=== PATIENT | female | born 1970 | race Caucasian/White ===

== ENCOUNTER → 2017-05-18 | Outpatient (REF) | payer OTHER ==
[~2017-05-18] MED LIST: ASPI81TA85 PO; TOPA25TA PO; ZOCO40TA PO; no home medications
[2017-05-18 14:13] LABS: BASO % 0.6 % (0.0-1.0); EOS # 0.2 K/mm3 (0.0-0.50); EOS % 3.8 % (0.0-3.0); LARGE UNSTAINED CELL # 0.2 K/mm3 (0.0-0.4); LARGE UNSTAINED CELL % 2.3 % (0.0-4.0); LYMPH # 2.5 K/mm3 (1.5-4.5); LYMPH % 36.5 % (24.0-44.0); MEAN CORPUSCULAR HEMOGLOBIN 33.8 pg (27.0-33.0); MEAN CORPUSCULAR HGB CONC 33.4 g/dl (32.0-36.5); MEAN CORPUSCULAR VOLUME 101.4 fl (80.0-96.0); MONO # 0.3 K/mm3 (0.0-0.8); MONO % 3.9 % (0.0-5.0); NEUTROPHILS # 3.4 K/mm3 (1.8-7.7); NEUTROPHILS % 52.9 % (36.0-66.0); PLATELET COUNT, AUTOMATED 155 k/mm3 (150-450); RED CELL DISTRIBUTION WIDTH 13.3 % (11.5-14.5); WHITE BLOOD COUNT 6.4 K/mm3 (4.0-10.0)
[2017-05-18 14:33] LABS: ALBUMIN 3.3 GM/DL (3.2-5.2); ALBUMIN/GLOBULIN RATIO 1.14 (1.00-1.93); ALKALINE PHOSPHATASE 69 U/L (45-117); ALT/SGPT 26 U/L (12-78); ANION GAP 10 MEQ/L (8-16); AST/SGOT 24 U/L (15-37); BILIRUBIN,TOTAL 0.6 MG/DL (0.2-1.0); BLOOD UREA NITROGEN 7 MG/DL (7-18); CALCIUM LEVEL 8.6 MG/DL (8.5-10.1); CARBON DIOXIDE LEVEL 19 MEQ/L (21-32); CHLORIDE LEVEL 116 MEQ/L (98-107); CHOLESTEROL LEVEL 134 MG/DL (<200); GLOMERULAR FILTRATION RATE > 60.0 (>58); GLUCOSE, FASTING 100 MG/DL (70-105); POTASSIUM SERUM 3.7 MEQ/L (3.5-5.1); SODIUM LEVEL 145 MEQ/L (136-145); TOTAL PROTEIN 6.2 GM/DL (6.4-8.2); TRIGLYCERIDES LEVEL 195 MG/DL (<150)
== END ==
LOC: M LABNEURO 08:01
PROVIDERS: ATTEND Psychiatry & Neurology Neurology
DX: Z86.73 Personal history of transient ischemic attack (TIA), and cerebral infarction without residual deficits (principal)

== ENCOUNTER 2017-10-21 16:51 | Emergency (ER) | payer OTHER ==
[2017-10-21] MEDS: NS 1,000 ML IV (20:45)
[2017-10-21] MEDS: METOCLOPRAMIDE INJ 10MG/2ML VIAL (J2765) IV (20:45)
[2017-10-21 21:16] LABS: BASO % 0.4 % (0.0-1.0); EOS # 0.2 10^3/uL (0.0-0.50); EOS % 2.5 % (0.0-3.0); HEMATOCRIT 43.4 % (36.0-47.0); HEMOGLOBIN 14.7 g/dl (12.0-16.0); IMMATURE GRANULOCYTE # 0.1 10^3/uL (0-0); IMMATURE GRANULOCYTE % 0.7 % (0-0); LYMPH % 42.4 % (24.0-44.0); MEAN CORPUSCULAR HEMOGLOBIN 33.1 pg (27.0-33.0); MEAN CORPUSCULAR HGB CONC 33.9 g/dl (32.0-36.5); MEAN CORPUSCULAR VOLUME 97.7 fl (80.0-96.0); MONO # 0.4 10^3/uL (0.0-0.8); MONO % 5.3 % (0.0-5.0); NEUTROPHILS # 3.5 10^3/uL (1.8-7.7); NEUTROPHILS % 48.7 % (36.0-66.0); PLATELET COUNT, AUTOMATED 159 10^3/uL (150-450); RED BLOOD COUNT 4.44 10^6/uL (4.00-5.40); RED CELL DISTRIBUTION WIDTH 12.2 % (11.5-14.5); WHITE BLOOD COUNT 7.1 10^3/uL (4.0-10.0)
[2017-10-21] MEDS: MORPHINE 4 MG/ML 1ML SYRINGE IV (21:28)
[2017-10-21 21:45] LABS: ALBUMIN 3.6 GM/DL (3.2-5.2); ALBUMIN/GLOBULIN RATIO 1.06 (1.00-1.93); ALKALINE PHOSPHATASE 83 U/L (45-117); ALT/SGPT 32 U/L (12-78); ANION GAP 9 MEQ/L (8-16); AST/SGOT 37 U/L (7-37); BILIRUBIN,DIRECT 0.2 MG/DL (0.0-0.2); BILIRUBIN,TOTAL 0.6 MG/DL (0.2-1.0); BLOOD UREA NITROGEN 9 MG/DL (7-18); CALCIUM LEVEL 8.7 MG/DL (8.5-10.1); CARBON DIOXIDE LEVEL 21 MEQ/L (21-32); CHLORIDE LEVEL 113 MEQ/L (98-107); CREATININE FOR GFR 0.67 MG/DL (0.55-1.02); GLOMERULAR FILTRATION RATE > 60.0 (>58); GLUCOSE, FASTING 86 MG/DL (70-105); LIPASE 207 U/L (73-393); POTASSIUM SERUM 3.7 MEQ/L (3.5-5.1); SODIUM LEVEL 143 MEQ/L (136-145)
[2017-10-22] MEDS: BISACODYL 10 MG SUPP PR (00:15)
[2017-10-22] MEDS: MAGNESIUM CITRATE 300 ML BTL PO (00:15)
== END 2017-10-22 00:21 | disposition home or self-care (01) ==
LOC: M ED 10-22 00:21
DX: K59.00 Constipation, unspecified (principal); K76.0 Fatty (change of) liver, not elsewhere classified; R16.1 Splenomegaly, not elsewhere classified; I10 Essential (primary) hypertension; K21.9 Gastro-esophageal reflux disease without esophagitis; F17.210 Nicotine dependence, cigarettes, uncomplicated; Z79.899 Other long term (current) drug therapy; Z79.82 Long term (current) use of aspirin; Z91.040 Latex allergy status; Z88.2 Allergy status to sulfonamides; Z98.890 Other specified postprocedural states; Z87.442 Personal history of urinary calculi
CPT/HCPCS: J2765

== ENCOUNTER 2017-10-27 19:00 | Emergency (ER) | payer OTHER ==
[2017-10-27] MEDS: ONDANSETRON 4 MG ORAL DISINTEGRATING TAB (S0181) PO (20:13)
== END 2017-10-27 21:19 | disposition home or self-care (01) ==
LOC: M ED 19:00
DX: J20.9 Acute bronchitis, unspecified (principal); R05 Cough; G43.909 Migraine, unspecified, not intractable, without status migrainosus; Z86.73 Personal history of transient ischemic attack (TIA), and cerebral infarction without residual deficits; F17.200 Nicotine dependence, unspecified, uncomplicated; Z79.899 Other long term (current) drug therapy; Z91.040 Latex allergy status; Z88.2 Allergy status to sulfonamides
CPT/HCPCS: 87804

== ENCOUNTER 2018-09-02 18:17 | Emergency (ER) | payer OTHER ==
[2018-09-02 19:26] LABS: BASO % 0.3 % (0.0-1.0); EOS # 0.3 10^3/uL (0.0-0.50); EOS % 4.1 % (0.0-3.0); HEMATOCRIT 43.4 % (36.0-47.0); HEMOGLOBIN 14.7 g/dl (12.0-15.5); IMMATURE GRANULOCYTE % 0.3 % (0-3.0); LYMPH # 1.4 10^3/uL (1.5-4.5); LYMPH % 22.4 % (24.0-44.0); MEAN CORPUSCULAR HEMOGLOBIN 33.4 pg (27.0-33.0); MEAN CORPUSCULAR HGB CONC 33.9 g/dl (32.0-36.5); MEAN CORPUSCULAR VOLUME 98.6 fl (80.0-96.0); MONO # 0.2 10^3/uL (0.0-0.8); MONO % 3.5 % (0.0-5.0); NEUTROPHILS # 4.2 10^3/uL (1.8-7.7); NEUTROPHILS % 69.4 % (36.0-66.0); PLATELET COUNT, AUTOMATED 122 10^3/uL (150-450); RED CELL DISTRIBUTION WIDTH 12.4 % (11.5-14.5)
[2018-09-02 19:48] LABS: ALBUMIN 3.3 GM/DL (3.2-5.2); ALKALINE PHOSPHATASE 99 U/L (45-117); ALT/SGPT 27 U/L (12-78); ANION GAP 9 MEQ/L (8-16); AST/SGOT 30 U/L (7-37); BILIRUBIN,DIRECT 0.2 MG/DL (0.0-0.2); BILIRUBIN,TOTAL 0.6 MG/DL (0.2-1.0); BLOOD UREA NITROGEN 10 MG/DL (7-18); CALCIUM LEVEL 8.3 MG/DL (8.5-10.1); CARBON DIOXIDE LEVEL 18 MEQ/L (21-32); CHLORIDE LEVEL 116 MEQ/L (98-107); CREATININE FOR GFR 0.82 MG/DL (0.55-1.30); GLOMERULAR FILTRATION RATE > 60.0 (>51); GLUCOSE, FASTING 116 MG/DL (70-100); LIPASE 255 U/L (73-393); POTASSIUM SERUM 3.7 MEQ/L (3.5-5.1); SODIUM LEVEL 143 MEQ/L (136-145); TOTAL PROTEIN 6.6 GM/DL (6.4-8.2)
[2018-09-02] MEDS: ONDANSETRON 4MG/2ML VIAL (J2405) IV (20:45)
[2018-09-02] MEDS: NS 1,000 ML IV (20:45)
[2018-09-02] MEDS: PANTOPRAZOLE 40MG INJ (PROTONIX) (C9113) IV (20:45)
== END 2018-09-02 22:08 | disposition home or self-care (01) ==
LOC: M ED 18:17
DX: K52.9 Noninfective gastroenteritis and colitis, unspecified (principal); Z86.73 Personal history of transient ischemic attack (TIA), and cerebral infarction without residual deficits; Z79.899 Other long term (current) drug therapy; Z88.2 Allergy status to sulfonamides; Z91.040 Latex allergy status
CPT/HCPCS: C9113

== ENCOUNTER 2018-11-04 12:40 | Emergency (ER) | payer OTHER ==
[~2018-11-04] VITALS: Ht 152.4 cm; Wt 119.1 kg
[~2018-11-04 12:40] MED LIST changes: +CHERSYP3 PO; +COLA100C5 PO; +KLOR1CAP2; +MIRA3350 PO; +NORT25CA2; +PRED20TA PO; +PROAAER10; +REGL10TA6 PO; +SIME1CAP PO; +TIZA4CAP; +TOPI1CAP10 PO; +ZOCO80TA PO
--- NOTE | 2018-11-04 13:42 | REP ---
Clinical: Constipation. Technique: Two supine views of the abdomen and pelvis. Findings: Bowel gas pattern is nonspecific. No significant fecal stasis noted. No evidence for bowel obstruction or perforation. No organomegaly. No abnormal calcifications. Skeletal structures are intact. Impression: Nonspecific abdominal radiographs. Electronically Signed by Mark Pike MD 11/04/2018 01:33 P
[2018-11-04] MEDS ORDERED: DULC10SU2 PR (14:54)
[2018-11-04] MEDS ORDERED: MAGNESIUM CITRATE 300 ML BTL PO ONE (15:00)
[2018-11-04 15:10] VITALS: BP 131/63
== END 2018-11-04 15:13 | disposition home or self-care (01) ==
LOC: M ED 12:40
DX: K59.00 Constipation, unspecified (principal); G43.909 Migraine, unspecified, not intractable, without status migrainosus; E78.00 Pure hypercholesterolemia, unspecified; I10 Essential (primary) hypertension; K21.9 Gastro-esophageal reflux disease without esophagitis; M54.9 Dorsalgia, unspecified; K87 Disorders of gallbladder, biliary tract and pancreas in diseases classified elsewhere; Z86.73 Personal history of transient ischemic attack (TIA), and cerebral infarction without residual deficits; Z87.01 Personal history of pneumonia (recurrent); Z87.440 Personal history of urinary (tract) infections; Z87.442 Personal history of urinary calculi; Z79.899 Other long term (current) drug therapy; Z88.2 Allergy status to sulfonamides; Z91.040 Latex allergy status

== ENCOUNTER → 2019-12-10 | Outpatient (CLI) | payer OTHER ==
[~2019-12-10] MED LIST changes: +DULC10SU2 PR
--- NOTE | 2019-12-10 16:42 | REP ---
CHEST, TWO VIEWS: COMPARISON: 07/19/2015 There is no evidence of acute infiltrate. No pleural effusion is seen. The heart is normal in size. The mediastinal silhouette is unremarkable. The visualized osseous structures are intact. IMPRESSION: No acute pulmonary disease. Electronically Signed by Bill Macllister MD 12/10/2019 04:47 P
== END ==
LOC: M WUC 15:37
PROVIDERS: ATTEND Physician Assistant
DX: J20.9 Acute bronchitis, unspecified (principal); R06.02 Shortness of breath

== ENCOUNTER → 2020-05-21 | Emergency (ER) | payer OTHER ==
[~2020-05-21] MED LIST changes: +ASPIRIN 325 MG TAB As Ordered ONE; +ASPIRIN 325 MG TAB ONE
--- NOTE | 2020-06-18 13:27 | ECGEPIP ---
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
--- NOTE | 2020-06-18 13:28 | ECGEPIP ---
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
[2020-07-05 13:13] LABS: BASO % 0.6 % (0.0-1.0); EOS # 0.3 10^3/uL (0.0-0.5); EOS % 4.5 % (0.0-3.0); HEMATOCRIT 41.1 % (36.0-47.0); HEMOGLOBIN 13.9 g/dl (12.0-15.5); LYMPH # 2.4 10^3/uL (1.5-5.0); LYMPH % 36.7 % (24.0-44.0); MEAN CORPUSCULAR HEMOGLOBIN 33.7 pg (27.0-33.0); MEAN CORPUSCULAR HGB CONC 33.8 g/dl (32.0-36.5); MEAN CORPUSCULAR VOLUME 99.5 fl (80.0-96.0); MONO # 0.3 10^3/uL (0.0-0.8); MONO % 4.5 % (0.0-5.0); NEUTROPHILS # 3.5 10^3/uL (1.5-8.5); NEUTROPHILS % 53.2 % (36.0-66.0); PLATELET COUNT, AUTOMATED 102 10^3/uL (150-450); RED BLOOD COUNT 4.13 10^6/uL (4.00-5.40); WHITE BLOOD COUNT 6.6 10^3/uL (4.0-10.0)
[2020-07-05 13:34] LABS: D-DIMER QUANT 305.66 ng/ml (<500); INR 1.08; PARTIAL THROMBOPLASTIN TIME 58.3 SECONDS (24.2-38.5); PROTHROMBIN TIME 14.2 SECONDS (12.5-14.3)
[2020-08-13 13:39] LABS: ALBUMIN 3.5 GM/DL (3.2-5.2); ALT/SGPT 26 U/L (12-78); BILIRUBIN,DIRECT 0.3 MG/DL (0.0-0.2); BILIRUBIN,TOTAL 0.7 MG/DL (0.2-1.0); BLOOD UREA NITROGEN 5 MG/DL (7-18); CALCIUM LEVEL 9.4 MG/DL (8.5-10.1); CARBON DIOXIDE LEVEL 25 MEQ/L (21-32); CHLORIDE LEVEL 111 MEQ/L (98-107); CK-MB VALUE MASS < 1.0 NG/ML (<3.6); CPK CREATINE PHOSPHOKINASE 61 U/L (26-192); CREATININE FOR GFR 0.86 MG/DL (0.55-1.30); FREE T4 0.91 NG/DL (0.76-1.46); GLOMERULAR FILTRATION RATE > 60.0 (>51); GLUCOSE, FASTING 139 MG/DL (70-100); LIPASE 205 U/L (73-393); MB/CK RELATIVE INDEX 1.64 (< OR =4); POTASSIUM SERUM 3.8 MEQ/L (3.5-5.1); SODIUM LEVEL 142 MEQ/L (136-145); TOTAL PROTEIN 7.5 GM/DL (6.4-8.2); TROPONIN I < 0.02 NG/ML (< 0.10)
[2020-08-13 13:40] LABS: CK-MB VALUE MASS < 1.0 NG/ML (<3.6); CPK CREATINE PHOSPHOKINASE 58 U/L (26-192); MB/CK RELATIVE INDEX 1.72 (< OR =4); TROPONIN I < 0.02 NG/ML (< 0.10)
== END | disposition home or self-care (01) ==
LOC: M ED 22:18
DX: R07.9 Chest pain, unspecified (principal); E78.5 Hyperlipidemia, unspecified; Z86.73 Personal history of transient ischemic attack (TIA), and cerebral infarction without residual deficits; Z79.899 Other long term (current) drug therapy; Z88.2 Allergy status to sulfonamides; Z91.040 Latex allergy status

== ENCOUNTER → 2020-11-05 | Outpatient (REF) | payer OTHER ==
[~2020-11-05] MED LIST changes: -ASPIRIN 325 MG TAB As Ordered ONE; -ASPIRIN 325 MG TAB ONE
== END ==
LOC: M LAB REF 15:55
PROVIDERS: ATTEND Physician Assistant
DX: J01.90 Acute sinusitis, unspecified (principal)

== ENCOUNTER 2021-03-11 10:41 | Emergency (ER) | payer OTHER ==
[~2021-03-11] VITALS: Ht 157.5 cm; Wt 121.7 kg
[2021-03-11] MEDS ORDERED: SERT50TA29 (10:57)
[2021-03-11 11:45] LABS: HEMATOCRIT 43.1 % (36.0-47.0); HEMOGLOBIN 14.4 g/dl (12.0-15.5); MEAN CORPUSCULAR HEMOGLOBIN 33.5 pg (27.0-33.0); MEAN CORPUSCULAR HGB CONC 33.4 g/dl (32.0-36.5); MEAN CORPUSCULAR VOLUME 100.2 fl (80.0-96.0); WHITE BLOOD COUNT 5.4 10^3/uL (4.0-10.0)
[2021-03-11 12:03] LABS: PLATELET COUNT, AUTOMATED 68 10^3/uL (150-450)
[2021-03-11 12:11] LABS: ATYPICAL LYMPH 6 % (0-5); BLOOD UREA NITROGEN 5 MG/DL (7-18); CARBON DIOXIDE LEVEL 21 MEQ/L (21-32); CHLORIDE LEVEL 106 MEQ/L (98-107); CREATININE FOR GFR 0.86 MG/DL (0.55-1.30); EOSINOPHILS 6 % (0-3); GLOMERULAR FILTRATION RATE > 60.0 (>51); GLUCOSE, FASTING 431 MG/DL (70-100); LYMPHOCYTES 24 % (16-44); MONOCYTES 4 % (0-5); NEUTROPHILS 60 % (28-66); PLATELET ESTIMATE DECREASED (NORMAL); POTASSIUM SERUM 3.8 MEQ/L (3.5-5.1); SODIUM LEVEL 133 MEQ/L (136-145)
[2021-03-11 12:12] LABS: POLYCHROMASIA 1+
[2021-03-11 12:13] LABS: ANISOCYTOSIS 1+
[2021-03-11 12:18] LABS: CK-MB VALUE MASS < 1.0 NG/ML (<3.6); CPK CREATINE PHOSPHOKINASE 59 U/L (26-192); FREE T4 0.96 NG/DL (0.76-1.46); MB/CK RELATIVE INDEX 1.69 (< OR =4); TROPONIN I < 0.02 NG/ML (< 0.10)
[2021-03-11 13:26] LABS: HEMOGLOBIN A1c 9.9 %
[2021-03-11] MEDS ORDERED: GLUCMIS7 XX (13:41)
[2021-03-11] MEDS ORDERED: METF-839 PO (13:41)
[2021-03-11] MEDS ORDERED: LANC1COM MC (13:41)
[2021-03-11 14:02] VITALS: BP 164/79
--- NOTE | 2021-03-11 21:06 | ECGEPIP ---
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
== END 2021-03-11 14:09 | disposition home or self-care (01) ==
LOC: M ED 10:41
DX: E11.9 Type 2 diabetes mellitus without complications (principal); E66.9 Obesity, unspecified; Z79.899 Other long term (current) drug therapy; Z79.84 Long term (current) use of oral hypoglycemic drugs; Z88.1 Allergy status to other antibiotic agents; Z88.2 Allergy status to sulfonamides; Z91.040 Latex allergy status

== ENCOUNTER 2021-10-16 19:47 | Emergency (ER) | payer OTHER ==
[~2021-10-16] VITALS: Ht 152.4 cm; Wt 128.2 kg
[~2021-10-16 19:47] MED LIST changes: +GLUCMIS7 XX; +LANC1COM MC; +METF-839 PO; +SERT50TA29
[2021-10-16 19:49] VITALS: BP 144/65
[2021-10-16] MEDS ORDERED: NORCO, ANEXSIA 5/325MG TABLET (HYDROcodone/ACETAMINOPHEN) PO ONE (20:45)
[2021-10-17] MEDS ORDERED: HYDR-3713 PO (16:59)
== END 2021-10-16 21:59 | disposition home or self-care (01) ==
LOC: M ED 19:47
DX: S52.502A Unspecified fracture of the lower end of left radius, initial encounter for closed fracture (principal); W10.8XXA Fall (on) (from) other stairs and steps, initial encounter; Y92.89 Other specified places as the place of occurrence of the external cause; E11.9 Type 2 diabetes mellitus without complications; E78.5 Hyperlipidemia, unspecified; G43.909 Migraine, unspecified, not intractable, without status migrainosus; Z79.899 Other long term (current) drug therapy; Z79.84 Long term (current) use of oral hypoglycemic drugs; Z88.1 Allergy status to other antibiotic agents; Z88.2 Allergy status to sulfonamides; Z91.040 Latex allergy status

== ENCOUNTER → 2021-10-18 | Outpatient (CLI) | payer OTHER ==
[~2021-10-18] MED LIST changes: +HYDR-3713 PO
== END ==
LOC: M SOG 09:41
PROVIDERS: ATTEND Orthopaedic Surgery Hand Surgery
DX: M79.632 Pain in left forearm (principal)

== ENCOUNTER → 2021-10-25 | Outpatient (CLI) | payer OTHER | LOC: M SOG 11:34 | PROVIDERS: ATTEND Orthopaedic Surgery Hand Surgery | DX: S52.502A Unspecified fracture of the lower end of left radius, initial encounter for closed fracture (principal); X58.XXXA Exposure to other specified factors, initial encounter; Y92.89 Other specified places as the place of occurrence of the external cause ==

== ENCOUNTER → 2021-10-31 | Outpatient (CLI) | payer OTHER | LOC: M SOG 10:40 | PROVIDERS: ATTEND Orthopaedic Surgery Hand Surgery | DX: S52.502A Unspecified fracture of the lower end of left radius, initial encounter for closed fracture (principal); X58.XXXA Exposure to other specified factors, initial encounter; Y92.89 Other specified places as the place of occurrence of the external cause ==

== ENCOUNTER → 2021-11-15 | Outpatient (CLI) | payer OTHER | LOC: M SOG 08:54 | PROVIDERS: ATTEND Orthopaedic Surgery Hand Surgery | DX: S52.572D Other intraarticular fracture of lower end of left radius, subsequent encounter for closed fracture with routine healing (principal); X58.XXXD Exposure to other specified factors, subsequent encounter; Y92.89 Other specified places as the place of occurrence of the external cause ==

== ENCOUNTER → 2021-12-13 | Outpatient (CLI) | payer OTHER | LOC: M SOG 08:10 | PROVIDERS: ATTEND Orthopaedic Surgery Hand Surgery | DX: S52.572D Other intraarticular fracture of lower end of left radius, subsequent encounter for closed fracture with routine healing (principal); W18.30XD Fall on same level, unspecified, subsequent encounter ==

== ENCOUNTER 2022-08-28 12:38 | Emergency (ER) | payer OTHER, SELFPAY ==
[~2022-08-28] VITALS: Ht 156.2 cm; Wt 115.5 kg
[2022-08-28] MEDS ORDERED: NS 1,000 ML IV ONE (14:10)
[2022-08-28] MEDS ORDERED: MOM 30ML SUSPENSION UDC PO ONE (14:10)
[2022-08-28] MEDS ORDERED: KETOROLAC 30 MG/ML 1ML VIAL IV ONE (14:10)
[2022-08-28] MEDS ORDERED: ISOVUE-370 76% 100ML VIAL As Ordered ONE (14:34)
[2022-08-28 14:35] LABS: BASO % 0.7 % (0.0-1.0); EOS # 0.3 10^3/uL (0.0-0.5); EOS % 4.7 % (0.0-3.0); HEMATOCRIT 42.3 % (36.0-47.0); LYMPH # 2.2 10^3/uL (1.5-5.0); LYMPH % 40.7 % (24.0-44.0); MEAN CORPUSCULAR HEMOGLOBIN 32.9 pg (27.0-33.0); MEAN CORPUSCULAR HGB CONC 33.1 g/dl (32.0-36.5); MEAN CORPUSCULAR VOLUME 99.3 fl (80.0-96.0); MONO # 0.3 10^3/uL (0.0-0.8); MONO % 5.1 % (2.0-8.0); NEUTROPHILS # 2.7 10^3/uL (1.5-8.5); NEUTROPHILS % 48.6 % (36.0-66.0); RED BLOOD COUNT 4.26 10^6/uL (4.00-5.40); WHITE BLOOD COUNT 5.5 10^3/uL (4.0-10.0)
[2022-08-28 14:36] LABS: PLATELET COUNT, AUTOMATED 96 10^3/uL (150-450)
[2022-08-28 15:25] LABS: ALBUMIN 3.8 G/DL (3.2-5.2); BILIRUBIN,DIRECT 0.4 MG/DL (<0.4); BILIRUBIN,TOTAL 1.2 MG/DL (0.3-1.2); TOTAL PROTEIN 7.3 G/DL (5.7-8.2)
[2022-08-28 16:29] VITALS: BP 158/82
== END 2022-08-28 16:40 | disposition home or self-care (01) ==
LOC: M ED 12:38
DX: K59.00 Constipation, unspecified (principal); E11.9 Type 2 diabetes mellitus without complications; I10 Essential (primary) hypertension; E78.5 Hyperlipidemia, unspecified; K21.9 Gastro-esophageal reflux disease without esophagitis; Z86.73 Personal history of transient ischemic attack (TIA), and cerebral infarction without residual deficits; Z87.442 Personal history of urinary calculi; F17.200 Nicotine dependence, unspecified, uncomplicated; R16.1 Splenomegaly, not elsewhere classified; N20.0 Calculus of kidney; Z79.899 Other long term (current) drug therapy; Z88.2 Allergy status to sulfonamides; Z91.040 Latex allergy status
CPT/HCPCS: 74018; 74177; 80047; 80076; 83690; 85025; 85049; 85055; 96361; 96374; 99284; J1885

== ENCOUNTER 2022-12-19 16:34 | Emergency (ER) | payer SELFPAY ==
[~2022-12-19] VITALS: Ht 154.9 cm; Wt 111.8 kg
[2022-12-19] MEDS ORDERED: CYCL-707 PO (19:26)
[2022-12-19] MEDS ORDERED: PRED20TA PO (19:26)
[2022-12-19 19:45] VITALS: BP 143/68
== END 2022-12-19 19:49 | disposition home or self-care (01) ==
LOC: M ED 16:34
DX: S46.902A Unspecified injury of unspecified muscle, fascia and tendon at shoulder and upper arm level, left arm, initial encounter (principal); X50.9XXA Other and unspecified overexertion or strenuous movements or postures, initial encounter; Y92.89 Other specified places as the place of occurrence of the external cause; E11.9 Type 2 diabetes mellitus without complications; I10 Essential (primary) hypertension; E78.5 Hyperlipidemia, unspecified; K21.9 Gastro-esophageal reflux disease without esophagitis; Z88.2 Allergy status to sulfonamides; Z91.040 Latex allergy status; F17.200 Nicotine dependence, unspecified, uncomplicated

== ENCOUNTER 2023-02-12 14:31 | Emergency (ER) | payer SELFPAY ==
[~2023-02-12] VITALS: Ht 154.9 cm; Wt 104.1 kg
[~2023-02-12 14:31] MED LIST changes: +CYCL-707 PO
[2023-02-12] MEDS ORDERED: ACETAMINOPHEN TAB 650MG DOSE (2X325MG) PO ONE (19:10)
[2023-02-12] MEDS ORDERED: BENZ200C70 PO (20:43)
[2023-02-12 20:56] VITALS: BP 160/80
== END 2023-02-12 20:58 | disposition home or self-care (01) ==
LOC: M ED 14:31
DX: J06.9 Acute upper respiratory infection, unspecified (principal); I10 Essential (primary) hypertension; E78.5 Hyperlipidemia, unspecified; Z86.73 Personal history of transient ischemic attack (TIA), and cerebral infarction without residual deficits; F17.200 Nicotine dependence, unspecified, uncomplicated; Z88.2 Allergy status to sulfonamides; Z91.040 Latex allergy status; Z79.52 Long term (current) use of systemic steroids; Z79.899 Other long term (current) drug therapy

== ENCOUNTER 2023-06-04 11:48 | Emergency (ER) | payer SELFPAY ==
[~2023-06-04] VITALS: Ht 154.9 cm; Wt 100.4 kg
[~2023-06-04 11:48] MED LIST changes: +BENZ200C70 PO
[2023-06-04] MEDS ORDERED: NS 1,000 ML IV ONE (13:20)
[2023-06-04] MEDS ORDERED: PANTOPRAZOLE 40MG VIAL IV ONE (13:20)
[2023-06-04 13:51] LABS: APPEARANCE, URINE CLEAR (CLEAR); BACTERIA, URINE AUTO 1+ (NEGATIVE); BILIRUBIN, URINE AUTO NEGATIVE (NEGATIVE); BLOOD, URINE BLOOD NEGATIVE (NEGATIVE); COLOR, URINE YELLOW (YELLOW); GLUCOSE, URINE (UA) AUTO NEGATIVE (NEGATIVE); KETONE, URINE AUTO NEGATIVE (NEGATIVE); LEUKOCYTE ESTERASE, URINE AUTO NEGATIVE (NEGATIVE); MUCUS, URINE SMALL (NEGATIVE); NITRITE, URINE AUTO NEGATIVE (NEGATIVE); PROTEIN, URINE AUTO NEGATIVE (NEGATIVE); RBC, URINE AUTO 0 /HPF (0-3); SPECIFIC GRAVITY URINE AUTO 1.004 (1.002-1.035); SQUAMOUS EPITHELIAL CELL UR AU 3 /HPF (0-6); WBC, URINE AUTO 0 /HPF (0-3)
[2023-06-04 13:52] LABS: BASO % 0.6 % (0.0-1.0); EOS # 0.1 10^3/uL (0.0-0.5); EOS % 1.3 % (0.0-3.0); HEMATOCRIT 44.3 % (36.0-47.0); HEMOGLOBIN 14.9 g/dl (12.0-15.5); LYMPH # 1.7 10^3/uL (1.5-5.0); LYMPH % 33.4 % (24.0-44.0); MEAN CORPUSCULAR HEMOGLOBIN 33.6 pg (27.0-33.0); MEAN CORPUSCULAR HGB CONC 33.6 g/dl (32.0-36.5); MEAN CORPUSCULAR VOLUME 99.8 fl (80.0-96.0); MONO # 0.3 10^3/uL (0.0-0.8); MONO % 5.2 % (2.0-8.0); NEUTROPHILS # 3.1 10^3/uL (1.5-8.5); NEUTROPHILS % 59.1 % (36.0-66.0); RED BLOOD COUNT 4.44 10^6/uL (4.00-5.40); WHITE BLOOD COUNT 5.2 10^3/uL (4.0-10.0)
[2023-06-04 14:19] LABS: LIPASE 51 U/L (12-53)
[2023-06-04 14:21] LABS: ALBUMIN 3.7 G/DL (3.2-5.2); ALKALINE PHOSPHATASE 104 U/L (46-116); ALT/SGPT 30 U/L (7.0-40); AST/SGOT 30 U/L (<34); BILIRUBIN,DIRECT 0.3 MG/DL (<0.4); BLOOD UREA NITROGEN 7 MG/DL (9-23); CALCIUM LEVEL 9.5 MG/DL (8.5-10.1); CARBON DIOXIDE LEVEL 26 MMOL/L (20-31); CHLORIDE LEVEL 111 MMOL/L (98-107); CREATININE FOR GFR 0.69 MG/DL (0.55-1.30); GLOMERULAR FILTRATION RATE > 60.0 (>51); GLUCOSE, FASTING 75 MG/DL (60-100); SODIUM LEVEL 145 MMOL/L (136-145); TOTAL PROTEIN 7.2 G/DL (5.7-8.2)
[2023-06-04 14:28] LABS: PLATELET COUNT, AUTOMATED 87 10^3/uL (150-450)
[2023-06-04] MEDS ORDERED: ISOVUE-370 76% 100ML VIAL As Ordered ONE (14:29)
[2023-06-04 15:05] VITALS: TEMP 97.4
[2023-06-04] MEDS ORDERED: HYDR-3363 PO (16:05)
[2023-06-04] MEDS ORDERED: PROT1TAB2 PO (16:05)
[2023-06-04 16:12] VITALS: BP 128/60; O2SAT 97
== END 2023-06-04 16:21 | disposition home or self-care (01) ==
LOC: M ED 11:48
DX: K29.70 Gastritis, unspecified, without bleeding (principal); F41.9 Anxiety disorder, unspecified; D69.6 Thrombocytopenia, unspecified; I10 Essential (primary) hypertension; F17.200 Nicotine dependence, unspecified, uncomplicated; Z88.2 Allergy status to sulfonamides; Z91.040 Latex allergy status; Z79.899 Other long term (current) drug therapy
CPT/HCPCS: 74177; 80048; 80076; 81001; 83690; 85025; 85049; 85055; 93005; 96361; 96372; 96374; 99284; C9113; Q9967

== ENCOUNTER 2023-06-13 09:42 | Emergency (ER) | payer SELFPAY ==
[~2023-06-13] VITALS: Ht 152.4 cm; Wt 106.1 kg
[~2023-06-13 09:42] MED LIST changes: +HYDR-3363 PO; +PROT1TAB2 PO
[2023-06-13 09:43] VITALS: BP 155/74; TEMP 97.5; O2SAT 99
[2023-06-13 13:43] LABS: MONO REFLEX EBV COMP NEGATIVE (NEGATIVE)
[2023-06-14 16:08] LABS: EBV VIRAL CAPSID AG IgM <36.0 U/mL (0.0-35.9)
== END 2023-06-13 13:02 | disposition home or self-care (01) ==
LOC: M ED 09:42
DX: J02.9 Acute pharyngitis, unspecified (principal); J01.90 Acute sinusitis, unspecified; I10 Essential (primary) hypertension; E11.9 Type 2 diabetes mellitus without complications; E78.5 Hyperlipidemia, unspecified; K21.9 Gastro-esophageal reflux disease without esophagitis; Z86.73 Personal history of transient ischemic attack (TIA), and cerebral infarction without residual deficits; Z87.442 Personal history of urinary calculi; F17.200 Nicotine dependence, unspecified, uncomplicated; Z91.040 Latex allergy status; Z88.2 Allergy status to sulfonamides; Z79.899 Other long term (current) drug therapy

== ENCOUNTER 2024-05-22 21:03 | Emergency (ER) | payer OTHER, SELFPAY ==
[~2024-05-22] VITALS: Ht 154.9 cm; Wt 109.1 kg
[2024-05-22 21:56] LABS: APPEARANCE, URINE MANUAL TURBID (CLEAR); COLOR, URINE MANUAL ORANGE (YELLOW)
[2024-05-22 21:57] LABS: BILIRUBIN, URINE MANUAL OBSCURED (NEGATIVE); GLUCOSE, URINE (UA) MANUAL NEGATIVE (NEGATIVE); KETONE, URINE MANUAL NEGATIVE (NEGATIVE); NITRITE, URINE MANUAL OBSCURED (NEGATIVE); PROTEIN, URINE MANUAL OBSCURED mg/dL (NEGATIVE); UROBILINOGEN, URINE MANUAL OBSCURED mg/dl (NORMAL)
[2024-05-22 21:58] LABS: BLOOD URINE MANUAL OBSCURED (NEGATIVE); LEUKOCYTE ESTERASE, URINE MAN OBSCURED (NEGATIVE)
[2024-05-22 22:10] LABS: SPECIFIC GRAVITY,URINE MANUAL 1.025 (1.002-1.035)
[2024-05-22 22:12] LABS: SQUAMOUS EPITHELIAL CELL URINE LARGE AMOUNT /hpf (SMALL AMT)
[2024-05-22 22:15] LABS: BACTERIA, URINE SMALL AMOUNT; HYALINE CAST, URINE NONE SEEN /lpf (0-1); RBC, URINE NONE SEEN /hpf (0-3)
[2024-05-22 22:23] LABS: BASO % 0.5 % (0.0-1.0); EOS # 0.2 10^3/uL (0.0-0.5); EOS % 3.8 % (0.0-3.0); HEMOGLOBIN 13.1 g/dl (12.0-15.5); LYMPH # 1.5 10^3/uL (1.5-5.0); LYMPH % 37.5 % (24.0-44.0); MEAN CORPUSCULAR HEMOGLOBIN 33.7 pg (27.0-33.0); MEAN CORPUSCULAR HGB CONC 34.5 g/dl (32.0-36.5); MEAN CORPUSCULAR VOLUME 97.7 fl (80.0-96.0); MONO # 0.2 10^3/uL (0.0-0.8); MONO % 5.9 % (2.0-8.0); NEUTROPHILS % 51.8 % (36.0-66.0); RED BLOOD COUNT 3.89 10^6/uL (4.00-5.40); WHITE BLOOD COUNT 3.9 10^3/uL (4.0-10.0)
[2024-05-22 22:26] LABS: PLATELET COUNT, AUTOMATED 74 10^3/uL (150-450)
[2024-05-22 22:35] LABS: INR 1.2; PROTHROMBIN TIME 14.9 SECONDS (12.5-14.5)
[2024-05-22 22:53] LABS: LIPASE 53 U/L (12-53)
[2024-05-22 22:54] LABS: CPK CREATINE PHOSPHOKINASE 46 U/L (34-145)
[2024-05-22 22:55] LABS: ALBUMIN 3.4 G/DL (3.2-5.2); ALKALINE PHOSPHATASE 111 U/L (46-116); ALT/SGPT 23 U/L (7.0-40); AST/SGOT 30 U/L (<34); BILIRUBIN,DIRECT 0.3 MG/DL (<0.4); BILIRUBIN,TOTAL 0.8 MG/DL (0.3-1.2); BLOOD UREA NITROGEN 15 MG/DL (9-23); CALCIUM LEVEL 8.9 MG/DL (8.5-10.1); CARBON DIOXIDE LEVEL 25 MMOL/L (20-31); CHLORIDE LEVEL 111 MMOL/L (98-107); CK-MB VALUE MASS < 1.0 NG/ML (<3.6); CREATININE FOR GFR 0.65 MG/DL (0.55-1.30); GLOMERULAR FILTRATION RATE > 60.0 (>51); GLUCOSE, FASTING 111 MG/DL (60-100); MB/CK RELATIVE INDEX 2.17 (< OR =4); POTASSIUM SERUM 3.6 MMOL/L (3.5-5.1); SODIUM LEVEL 139 MMOL/L (136-145); TOTAL PROTEIN 6.6 G/DL (5.7-8.2)
[2024-05-23] MEDS: KETOROLAC 30 MG/ML 1ML VIAL IV ONE (02:46)
[2024-05-23] MEDS: ONDANSETRON 4MG 2ML VIAL IV ONE (02:46)
[2024-05-23] MEDS ORDERED: LASI20TA3 PO (05:49)
[2024-05-23] MEDS ORDERED: NAPR-837 PO (05:49)
[2024-05-23 05:59] VITALS: BP 167/76; TEMP 96.3; O2SAT 96
== END 2024-05-23 06:02 | disposition home or self-care (01) ==
LOC: M ED 21:03
DX: R10.9 Unspecified abdominal pain (principal); R60.9 Edema, unspecified; N20.0 Calculus of kidney; R16.1 Splenomegaly, not elsewhere classified; K76.0 Fatty (change of) liver, not elsewhere classified; E11.9 Type 2 diabetes mellitus without complications; E78.5 Hyperlipidemia, unspecified; Z87.442 Personal history of urinary calculi; F17.200 Nicotine dependence, unspecified, uncomplicated; Z79.899 Other long term (current) drug therapy; Z88.2 Allergy status to sulfonamides; Z91.040 Latex allergy status
CPT/HCPCS: 74176; 80048; 80076; 81000; 82550; 82553; 83690; 84484; 85025; 85049; 85055; 85610; 93005; 96374; 96375; 99284; J1885; J2405

== ENCOUNTER 2024-11-10 14:42 | Emergency (ER) | payer OTHER ==
[~2024-11-10] VITALS: Ht 157.5 cm; Wt 109.4 kg
[~2024-11-10 14:42] MED LIST changes: +LASI20TA3 PO; +NAPR-837 PO
[2024-11-10 19:33] LABS: BASO % 0.6 % (0.0-1.0); EOS # 0.2 10^3/uL (0.0-0.5); EOS % 3.9 % (0.0-3.0); HEMOGLOBIN 14.6 g/dl (12.0-15.5); LYMPH # 1.7 10^3/uL (1.5-5.0); MEAN CORPUSCULAR HEMOGLOBIN 34.1 pg (27.0-33.0); MEAN CORPUSCULAR HGB CONC 34.8 g/dl (32.0-36.5); MEAN CORPUSCULAR VOLUME 98.1 fl (80.0-96.0); MONO # 0.3 10^3/uL (0.0-0.8); MONO % 6.7 % (2.0-8.0); NEUTROPHILS # 2.4 10^3/uL (1.5-8.5); NEUTROPHILS % 52.6 % (36.0-66.0); RED BLOOD COUNT 4.28 10^6/uL (4.00-5.40); WHITE BLOOD COUNT 4.6 10^3/uL (4.0-10.0)
[2024-11-10 19:34] LABS: PLATELET COUNT, AUTOMATED 85 10^3/uL (150-450)
[2024-11-10 19:59] LABS: LIPASE 64 U/L (12-53)
[2024-11-10 20:02] LABS: ALBUMIN 3.4 G/DL (3.2-5.2); ALKALINE PHOSPHATASE 101 U/L (35-104); ALT/SGPT 29 U/L (7.0-40); AMYLASE 30 U/L (30-118); AST/SGOT 34 U/L (<34); BILIRUBIN,DIRECT 0.3 MG/DL (<0.4); BILIRUBIN,TOTAL 1.2 MG/DL (0.3-1.2); BLOOD UREA NITROGEN 10 MG/DL (9-23); CALCIUM LEVEL 9.2 MG/DL (8.5-10.1); CARBON DIOXIDE LEVEL 25 MMOL/L (20-31); CHLORIDE LEVEL 109 MMOL/L (98-107); CREATININE FOR GFR 0.55 MG/DL (0.55-1.30); GLOMERULAR FILTRATION RATE > 60.0 (>51); GLUCOSE, FASTING 117 MG/DL (60-100); POTASSIUM SERUM 3.6 MMOL/L (3.5-5.1); SODIUM LEVEL 142 MMOL/L (136-145); TOTAL PROTEIN 7.2 G/DL (5.7-8.2)
[2024-11-11] MEDS ORDERED: ONDA-282 PO (00:35)
[2024-11-11] MEDS: IBUPROFEN 600MG TAB PO ONE (00:41)
[2024-11-11] MEDS: ONDANSETRON 4MG ORAL DISINTEGRATING TAB PO ONE (00:42)
[2024-11-11 00:46] VITALS: BP 129/62; TEMP 96.6; O2SAT 98
== END 2024-11-11 01:00 | disposition home or self-care (01) ==
LOC: M ED 14:42
DX: R16.2 Hepatomegaly with splenomegaly, not elsewhere classified (principal); R10.12 Left upper quadrant pain; K21.9 Gastro-esophageal reflux disease without esophagitis; E78.5 Hyperlipidemia, unspecified; I10 Essential (primary) hypertension; E11.9 Type 2 diabetes mellitus without complications; Z86.73 Personal history of transient ischemic attack (TIA), and cerebral infarction without residual deficits; Z88.2 Allergy status to sulfonamides; Z91.040 Latex allergy status; Z79.899 Other long term (current) drug therapy